=== PATIENT | female | born 1940 | race Caucasian/White ===

== ENCOUNTER 2017-05-13 09:51 | Outpatient (CLI) | payer MEDICARE ==
[2017-05-13] MEDS ORDERED: Iopamidol 370 76% 100 ML VIAL ONE (12:17)
== END 2017-05-13 09:52 | disposition home or self-care (01) ==
LOC: BICRAD 09:51
PROVIDERS: ATTEND Internal Medicine Medical Oncology
DX: C34.11 Malignant neoplasm of upper lobe, right bronchus or lung (principal); I70.90 Unspecified atherosclerosis
CPT/HCPCS: 71260; 74160

== ENCOUNTER 2017-07-11 14:51 | Outpatient (CLI) | payer MEDICARE | END 2017-07-11 14:52 | disposition home or self-care (01) | LOC: BICRAD 14:51 | PROVIDERS: ATTEND Internal Medicine Medical Oncology | DX: C34.11 Malignant neoplasm of upper lobe, right bronchus or lung (principal); R91.8 Other nonspecific abnormal finding of lung field | CPT/HCPCS: 71046 ==

== ENCOUNTER 2017-09-15 08:20 | Outpatient (CLI) | payer MEDICARE | END 2017-09-15 08:21 | disposition home or self-care (01) | LOC: BICRAD 08:20 | PROVIDERS: ATTEND Internal Medicine Medical Oncology | DX: C34.11 Malignant neoplasm of upper lobe, right bronchus or lung (principal) | CPT/HCPCS: 71046 ==

== ENCOUNTER 2017-11-28 08:08 | Outpatient (CLI) | payer MEDICARE | END 2017-11-28 08:09 | disposition home or self-care (01) | LOC: BICMAMMO 08:08 | PROVIDERS: ATTEND Internal Medicine | DX: Z12.31 Encounter for screening mammogram for malignant neoplasm of breast (principal); N95.9 Unspecified menopausal and perimenopausal disorder; Z85.118 Personal history of other malignant neoplasm of bronchus and lung; Z85.3 Personal history of malignant neoplasm of breast | CPT/HCPCS: 77063; 77067; 77080 ==

== ENCOUNTER 2017-12-08 12:51 | Outpatient (CLI) | payer MEDICARE | END 2017-12-08 12:52 | disposition home or self-care (01) | LOC: BICRAD 12:51 | PROVIDERS: ATTEND Internal Medicine Medical Oncology | DX: C34.11 Malignant neoplasm of upper lobe, right bronchus or lung (principal); Z92.3 Personal history of irradiation | CPT/HCPCS: 36415; 71046; 80053; 82248; 82378; 83615; 84100; 84550 ==

== ENCOUNTER 2018-02-16 13:05 | Outpatient (CLI) | payer MEDICARE ==
--- NOTE | 2018-02-16 14:15 | RAD ---
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 COMPARISON: 12/08/17. FINDINGS: Left subclavian catheter and injection port. Stable linear parenchymal and right apical pleural thick ening changes with some right apical lung volume loss, stable from the prior study. No new process. M ild left apical pleural thickening. IMPRESSION: Some linear parenchymal and pleural based parenchymal changes in the right apex with some apical pleu ral thickening, stable from prior study. Atherosclerosis of aorta with ectasia. No new process. POS: C
== END 2018-02-16 13:06 | disposition home or self-care (01) ==
LOC: BICRAD 13:05
PROVIDERS: ATTEND Internal Medicine Medical Oncology
DX: C34.11 Malignant neoplasm of upper lobe, right bronchus or lung (principal); I70.0 Atherosclerosis of aorta; I77.811 Abdominal aortic ectasia
CPT/HCPCS: 71046

== ENCOUNTER 2018-08-22 08:04 | Outpatient (CLI) | payer MEDICARE ==
--- NOTE | 2018-08-22 08:24 | RAD ---
EXAM: Two views chest PROVIDED CLINICAL HISTORY: Carcinoma right upper lobe. COMPARISON: 02/17/2028 FINDINGS: Cardiac silhouette and pulmonary vasculature are within normal limits. Again noted are linear parench ymal opacities in the right lung apex with associated pleural thickening. The lungs are otherwise clear. No discrete pulmonary nodule is identified. Degenerative changes are seen in the spine. Remote left-sided rib fractures again seen. Vascular calcifications are seen in the thoracic aorta.Left subclavian Mediport catheter is unchanged in position. IMPRESSION: 1. Stable pleural and parenchymal changes right lung apex. No acute cardiopulmonary process is identi fied..
== END 2018-08-22 08:05 | disposition home or self-care (01) ==
LOC: BICRAD 08:04
PROVIDERS: ATTEND Internal Medicine Medical Oncology
DX: C34.11 Malignant neoplasm of upper lobe, right bronchus or lung (principal); R91.8 Other nonspecific abnormal finding of lung field
CPT/HCPCS: 71046; 80053; 82248; 82378; 83615; 84100; 84550

== ENCOUNTER 2018-12-19 10:48 | Outpatient (CLI) | payer MEDICARE ==
--- NOTE | 2018-12-19 13:04 | RAD ---
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 FINDINGS: Comparison made with 08/22/18. Left sided Port-A-Cath remains in place. The heart size is normal. The aorta is tortuous. Chronic byron nges in the right upper lung and old left rib fractures are again seen. No lobar consolidation, pneum othoraces or pleural effusions are identified. There are degenerative changes in the spine. IMPRESSION: Stable exam. No acute process. POS: OFF
== END 2018-12-19 10:49 | disposition home or self-care (01) ==
LOC: BICRAD 10:48
PROVIDERS: ATTEND Internal Medicine Medical Oncology
DX: C34.11 Malignant neoplasm of upper lobe, right bronchus or lung (principal); Z92.3 Personal history of irradiation
CPT/HCPCS: 36415; 71046; 80053; 82248; 82378; 83615; 84100; 84550

== ENCOUNTER 2018-12-22 11:53 | Outpatient (CLI) | payer MEDICARE ==
--- NOTE | 2018-12-22 12:58 | MMO ---
Bilateral MAMMO Bilat Screen [facility]. CLINICAL HISTORY: Patient is 78 years old and is seen for screening. The patient has no family history of breast cancer. The patient has a history of right Mastectomy in November,, right Radiation Therapy in and right Mastectomy - 1. VIEWS: The views performed were: left craniocaudal with tomosynthesis and left mediolateral oblique with tomosynthesis. FILMS COMPARED: The present examination has been compared to prior imaging studies performed at [facility] on 11/04/2014, 11/07/2015, 11/25/2016 and 11/28/2017. MAMMOGRAM FINDINGS: There are scattered fibroglandular densities. There are stable benign appearing calcifications seen in the left breast. There are no suspicious masses, suspicious calcifications, or new areas of architectural distortion. IMPRESSION: THERE IS NO MAMMOGRAPHIC EVIDENCE OF MALIGNANCY. A ROUTINE FOLLOW-UP MAMMOGRAM IN 1 YEAR IS RECOMMENDED. THE RESULTS OF THIS EXAM WERE SENT TO THE PATIENT. ACR BI-RADS Category 2 - Benign finding MAMMOGRAPHY NOTE: 1. A negative mammogram report should not delay a biopsy if a dominant of clinically suspicious mass is present. 2. Approximately 10% to 15% of breast cancers are not detected by mammography. 3. Adenosis and dense breasts may obscure an underlying neoplasm. Reported by: JONE HEATH MD Electonically Signed: [id number]
== END 2018-12-22 11:54 | disposition home or self-care (01) ==
LOC: BICMAMMO 11:53
PROVIDERS: ATTEND Internal Medicine
DX: Z12.31 Encounter for screening mammogram for malignant neoplasm of breast (principal); Z90.11 Acquired absence of right breast and nipple; Z92.3 Personal history of irradiation
CPT/HCPCS: 77063; 77067

== ENCOUNTER 2019-04-12 13:08 | Outpatient (CLI) | payer MEDICARE ==
--- NOTE | 2019-04-12 13:47 | RAD ---
PA AND LATERAL CHEST: HISTORY: Malignant neoplasm of upper lobes, right bronchus. COMPARISON: 12/19/2018 FINDINGS: The heart size is normal. The aorta is tortuous. A left sided Port-A-Cath remains in place. Chronic c hanges in the right upper lung and old left rib fracture is again seen. No lobar consolidation, pneum othoraces or pleural effusions are identified. There are degenerative changes in the spine. IMPRESSION: Stable examination. No acute process. POS: ELIZA
== END 2019-04-12 13:09 | disposition home or self-care (01) ==
LOC: BICRAD 13:08
PROVIDERS: ATTEND Internal Medicine Medical Oncology
DX: C34.11 Malignant neoplasm of upper lobe, right bronchus or lung (principal)
CPT/HCPCS: 71046